=== PATIENT | female | born 1940 | race Caucasian/White ===

== ENCOUNTER → 2017-01-30 | Outpatient (CLI) | payer MEDICARE ==
[~2017-01-30] MED LIST: ACETAMINOPHEN500 M3 PO; ACIDOPHILUS1 CA1 PO; AMBIEN10 MG PO; ASPIRIN81 M1 PO; ASPIRIN81 M2 PO; ASPIRIN81 MG PO; BACTRIM 400-801 TA1 PO; BACTRIM DS TABL1 TA1 PO; BILBERRY PO; CALCIUM CIT-VI1 EACH PO; CARAFATE; CARAFATE1 G PO; CARAFATE1 GM PO; CELEBREX; CELEBREX PO; CELECOXIB200 MG PO; CIPRO PO; CITRACAL + D CA1 TA1; CITRACAL + D CA1 TA1 PO; CRANBERRY PLUS1 EAC1 PO; CRANBERRY PLUS1 EACH PO; DAILY VALUE1 EACH PO; EXCEDRIN MIGRA1 EACH PO; FAMOTIDINE PO; FERROUS GLUCON324 MG PO; FERROUS SULFATE; FERROUS SULFATE PO; FISH OIL 1,0001 CAP PO; FLORANEX T1 TAB.CHE3 PO; FOLIC ACID PO; GABAPENTIN300 MG PO; GABAPENTIN600 MG PO; GINKGO BILOBA40 M1 PO; GINKGO BILOBA40 MG PO; GINKGO60 MG PO; GLUCOSAMINE H1500 MG PO; HCTZ PO; HYDROCHLOROTHIA25 MG PO; IMITREX; IRON SUPPLEMENT1 TAB PO; IRON TABLETS1 TAB PO; IRON1 TA1 PO; K-DUR20 ME1 PO; K-DUR20 ME2 DOB; KCL PO; LEVAQUIN PO; LORTAB 5/500 TA1 TA1 PO; LOW DOSE ASPIRI81 M2 PO; MAGNESIUM250 M1 PO; MELATONIN3 M4 PO; MELATONIN3 MG PO; METRONIDAZOLE PO; MULTI VITAMIN1 EACH PO; MYLANTA GAS80 MG PO; NASAL DECONGEST10 M1 PO; NEURONTIN PO; NEURONTIN300 MG PO; NORFLEX100 MG PO; OMEGA 3 FISH1 CAP.EC; PANTOPRAZOLE SO40 MG PO; PAROXETINE HCL10 MG PO; PAXIL10 MG PO; PEPCID PO; PEPTO-BISMOL262 MG PO; PERCOCET 71 UDTAB 7. PO; PHENERGAN25 M1; PRAVASTATIN SOD40 MG PO; PRILOSEC20 M1 PO; PROTONIX; PROTONIX PO; SUMATRIPTAN SUC50 M1 PO; SUMATRIPTAN SUC50 MG PO; TUMS500 M1 PO; TYLENOL #3 PO; TYLENOL EXTRA500 M1 PO; VITAMIN C500 M1 PO; VITAMIN D1000 UNIT PO; VITAMIN D31000 UNI1 PO; ZOFRAN PO; ZOLPIDEM TARTRA10 M1 PO
== END | disposition home or self-care (01) ==
LOC: CSSDAY 13:30
DX: D50.9 Iron deficiency anemia, unspecified (principal); R53.1 Weakness; K90.9 Intestinal malabsorption, unspecified; Z79.899 Other long term (current) drug therapy; Z88.0 Allergy status to penicillin
CPT/HCPCS: 96374; Q0138